=== PATIENT | male | born 1995 | race Caucasian/White ===

== ENCOUNTER 2023-02-15 13:01 | Emergency (ER) | payer MEDICAID ==
[~2023-02-15] VITALS: Ht 172.7 cm; Wt 79.4 kg
[2023-02-15 13:05] VITALS: BP 122/70
[2023-02-15] MEDS ORDERED: BPM/-9 PO (14:17)
[2023-02-15] MEDS ORDERED: PRED20TA5 PO (14:17)
[2023-02-15 14:40] VITALS: BP 124/73
--- NOTE | 2023-02-15 14:40 | NUR ---
Patient discharged with v/s stable. Written and verbal after care instructions given. Patient alert, oriented and verbalized understanding of instructions. Ambulatory with steady gait. All questions addressed prior to discharge. ID band removed. Patient advised to follow up with PMD. Rx of RYNEX PE LIQUID AND DELTASONE given. Opportunity to ask questions provided and answered.
--- NOTE | 2023-02-15 14:41 | NUR ---
The patient's care was reviewed and supervised by Elham Castellanos, RN, RN.
== END 2023-02-15 14:40 | disposition home or self-care (01) ==
LOC: MED 13:01
DX: J20.9 Acute bronchitis, unspecified (principal); Z79.899 Other long term (current) drug therapy; Z71.6 Tobacco abuse counseling; F17.210 Nicotine dependence, cigarettes, uncomplicated
CPT/HCPCS: 71045; 99283